=== PATIENT | male | born 1990 | race Caucasian/White ===

== ENCOUNTER 2020-02-21 12:30 | Day surgery (SDC) | payer OTHER, MEDICARE ==
[~2020-02-21] VITALS: Ht 180.3 cm; Wt 85.0 kg
[2020-02-21] MEDS ORDERED: SEVE800T7 PO (13:29)
[2020-02-21] MEDS ORDERED: LABE200T6 PO (13:29)
[2020-02-21] MEDS ORDERED: LACTATED RINGERS 1,000 ML IV STA (13:29)
[2020-02-21] MEDS ORDERED: ALLO100T30 PO (13:29)
[2020-02-21] MEDS ORDERED: CALC0.25 PO (13:29)
[2020-02-21] MEDS ORDERED: AMLO10TA8 PO (13:29)
[2020-02-21] MEDS ORDERED: ATOR40TA78 PO (13:29)
[2020-02-21] MEDS ORDERED: LOSA25TA12 PO (13:29)
[2020-02-21] MEDS ORDERED: CHLORHEXIDINE 15 ML UDC MM STA (13:29)
[2020-02-21 13:32] VITALS: BP 141/88
[2020-02-21] MEDS ORDERED: SODIUM CHLORIDE 0.9% 1,000 ML IV SCH (13:38)
[2020-02-21] MEDS ORDERED: CHLORHEXIDINE 15 ML UDC ONE (13:41)
[2020-02-21 14:19] LABS: BASOPHILS % (AUTO) 1 % (0-1); EOSINOPHILS % (AUTO) 3 % (1-7); LYMPHOCYTES % (AUTO) 12 % (22-44); MEAN CORPUSCULAR HEMOGLOBIN 30.1 pg (27.5-34.5); MEAN CORPUSCULAR HGB CONC 33.8 g/dL (33.2-36.2); MEAN PLATELET VOLUME 8.8 fL (7.4-10.4); MONOCYTES % (AUTO) 8 % (2-9); NEUTROPHILS % (AUTO) 76 % (42-75); PLATELET COUNT 288 x10^3/uL (130-400); RED BLOOD COUNT 3.84 x10^6/uL (4.38-5.82); RED CELL DISTRIBUTION WIDTH 12.8 % (9.4-14.8)
[2020-02-21 14:20] LABS: MD NO
[2020-02-21] MEDS ORDERED: HEPARIN 1,000 UNITS/ML, 10ML ONE (14:58)
[2020-02-21] MEDS ORDERED: BUPIVACAINE/PF 0.25% ONE (14:58)
[2020-02-21] MEDS ORDERED: LIDOCAINE 1%, 20ML ONE (14:58)
[2020-02-21] MEDS ORDERED: PROTAMINE SULFATE 10 MG/ML, 5ML ONE (14:58)
[2020-02-21 15:03] LABS: ALANINE AMINOTRANSFERASE 50 U/L (12-78); ANION GAP 7 mmol/L (5-15); CALCIUM 9.7 mg/dL (8.5-10.1); CHLORIDE 104 mmol/L (98-107); CREATININE 4.84 mg/dL (0.7-1.3)
[2020-02-21 15:06] LABS: ALKALINE PHOSPHATASE 97 U/L (45-117); BILIRUBIN,TOTAL 0.5 mg/dL (0.2-1.0); TOTAL PROTEIN 7.2 g/dL (6.4-8.2)
[2020-02-21] MEDS ORDERED: MIDAZOLAM 1 MG/ML, 2ML ONE (15:50)
[2020-02-21] MEDS ORDERED: PROPOFOL 50 ML ONE (15:50)
[2020-02-21] MEDS ORDERED: FENTANYL PF 250 MCG/5ML ONE (15:51)
[2020-02-21] MEDS ORDERED: CEFAZOLIN 1,000 MG ONE (17:10)
[2020-02-21] MEDS ORDERED: PROPOFOL 10 MG/ML, 20ML ONE (17:36)
[2020-02-21] MEDS ORDERED: ONDANSETRON 2MG/ML, 2ML ONE (17:36)
[2020-02-21] MEDS ORDERED: FENTANYL PF 100 MCG/2ML IV PRN (18:00)
[2020-02-21] MEDS ORDERED: LABETALOL 5MG/ML, 20ML IV PRN (18:00)
[2020-02-21] MEDS ORDERED: EPHEDRINE 50 MG/ML, 1ML IM PRN (18:00)
[2020-02-21] MEDS ORDERED: ACETAMINOPHEN 325 MG TABLET PO PRN (18:00)
[2020-02-21] MEDS ORDERED: ONDANSETRON 2MG/ML, 2ML IVPush PRN (18:00)
[2020-02-21] MEDS ORDERED: EPHEDRINE 50 MG/ML, 1ML IVPush PRN (18:00)
[2020-02-21] MEDS ORDERED: DIAZEPAM 5 MG/ML, 2ML IVPush PRN (18:00)
[2020-02-21] MEDS ORDERED: PROMETHAZINE 25 MG/ML, 1ML IVPush PRN (18:00)
[2020-02-21] MEDS ORDERED: HYDROmorphone 1 MG/ML, 1ML INJ IVPush PRN (18:00)
[2020-02-21] MEDS ORDERED: OXYcodone 5 MG/5 ML ORAL.SOL UDC PO PRN (18:00)
[2020-02-21] MEDS ORDERED: DIPHENHYDRAMINE 50 MG/ML, 1ML IVPush PRN (18:00)
[2020-02-21] MEDS ORDERED: OXYcodone 5 MG/5 ML ORAL.SOL UDC ONE (18:44)
[2020-02-21] MEDS ORDERED: HYDR-3240 PO (19:45)
== END 2020-02-21 20:05 | disposition home or self-care (01) ==
LOC: OUT 12:30 → 3WST 19:20 → OUT 20:05
PROVIDERS: ATTEND Surgery
DX: I12.0 Hypertensive chronic kidney disease with stage 5 chronic kidney disease or end stage renal disease (principal); N18.6 End stage renal disease; Z79.899 Other long term (current) drug therapy; Z87.891 Personal history of nicotine dependence; Z20.828 Contact with and (suspected) exposure to other viral communicable diseases; Z98.890 Other specified postprocedural states
CPT/HCPCS: 36415; 36821; 80053; 85025; 87635; 93005; J0690; J1644; J2250; J2405; J2704; J3010; J7030; G0378; J2720